=== PATIENT | female | born 1970 | race Caucasian/White ===

== ENCOUNTER 2018-07-05 09:43 | Day surgery (SDC) | payer MEDICAID ==
[2018-07-05] VITALS (10 sets, daily range): BP systolic 124–161; BP diastolic 61–90; PULSE 65–74; RESP 10–19; Ht 157.5 cm; Wt 71.1 kg
[~2018-07-05] VITALS: Ht 157.5 cm; Wt 71.1 kg
[~2018-07-05 09:43] MED LIST: CEFAZOLIN 1 GM/50 ML (PMX) 50 ML IVPB SCH; SOD CHLORIDE 0.9% 1,000 ML IV SCH
--- NOTE | 2018-07-05 11:30 | PREAC ---
Date/Time of Note Date/Time of Note DATE: 07/05/18 TIME: 11:30 Anesthesia Eval and Record Evaluation Time Pre-Procedure Interview DATE: 07/05/18 TIME: 11:30 Age 48 Sex female NPO: 8 hrs Preoperative diagnosis Left breast mass Planned procedure Excision of mass Past Medical History Past Medical History: None Surgery & Anesthesia Issues No known issue Meds Anticoagulation: No Beta Rosario within 24 hr: No Reason Beta Rosario not given: Pt. not on B-Rosario No Active Prescriptions or Reported Meds Current Medications Sodium Chloride 1,000 ml @ 75 mls/hr [id number] IV ; Start 07/05/18 at 07:00 Cefazolin Sodium 50 ml @ 100 mls/hr OC IVPB ; Start 07/05/18 at 07:00 Meds reviewed: Yes Allergies Coded Allergies: No Known Allergies (Verified Allergy, Unknown, 07/05/18) Allergies Reviewed: Yes Labs/Studies Labs Reviewed: Reviewed by anesthesiologist test: Negative Pre-procedure Exam Last vitals Vital Signs Date Temp Pulse Resp B/P (MAP) Pulse Ox O2 O2 Flow FiO2 Time Delivery Rate 07/05/18 98.1 71 16 159/84 98 Room Air 11:21 (109) Airway: Adequate mouth opening Mallampati: Mallampati II Teeth: Normal Lung: Normal Heart: Normal ASA Physical Status ASA physical status: 2 Emergency: None Planned Anesthetic General/MAC: LMA Planned Pain Management Parenteral pain med Pre-operative Attestations Prior to commencing anesthesia and surgery, the patient was re-evaluated, there was verification of: *The patient's identity *The results of appropriate recent lab work and preoperative vital signs *The above evaluation not changing prior to induction *Anesthetic plan, risk benefits, alternative and complications discussed with patient/family; questions answered; patient/family understands, accepts and wishes to proceed. AL HAQ MD Jul 05, 2018 11:30
[2018-07-05] MEDS ORDERED: CEFAZOLIN 1 GM INJ ONE (11:35)
[2018-07-05] MEDS ORDERED: PROPOFOL 20 ML ONE (11:35)
[2018-07-05] MEDS ORDERED: LIDOCAINE 2% (SDV) 5 ML INJ ONE (11:35)
[2018-07-05] MEDS ORDERED: MEPERIDINE 100 MG INJ ONE (11:36)
[2018-07-05] MEDS ORDERED: METOCLOPRAMIDE 10 MG INJ ONE (11:36)
[2018-07-05] MEDS ORDERED: ONDANSETRON 4 MG INJ ONE (11:36)
[2018-07-05] MEDS ORDERED: MIDAZOLAM 1 MG/ML 2 ML INJ IV PRN (12:00)
[2018-07-05] MEDS ORDERED: MEPERIDINE 25 MG INJ IV PRN (12:00)
[2018-07-05] MEDS ORDERED: ONDANSETRON 4 MG INJ IV PRN (12:00)
[2018-07-05] MEDS ORDERED: HYDROmorphONE 1 MG/5 ML IV SYRINGE IV PRN ×3 (12:00)
[2018-07-05] MEDS ORDERED: hydrALAzine 20 MG INJ IV PRN (12:00)
[2018-07-05] MEDS ORDERED: METOCLOPRAMIDE 10 MG INJ IV PRN (12:00)
[2018-07-05] MEDS ORDERED: FENTAnyl 50 MCG/ML VIAL IV PRN ×3 (12:00)
[2018-07-05] MEDS ORDERED: LABETALOL HCL 20MG INJ IV PRN (12:00)
[2018-07-05] MEDS ORDERED: EPHEDrine SULFATE 50 MG/5 ML SYG IV PRN (12:00)
[2018-07-05] MEDS ORDERED: OXYCODONE/ACETAMINOPHEN (5/325) TAB PO PRN ×2 (12:00)
[2018-07-05] MEDS ORDERED: DIPHENHYDRAMINE 50 MG INJ IV PRN (12:00)
--- NOTE | 2018-07-05 12:55 | SIPON ---
Date/Time of Note Date/Time of Note DATE: 07/05/18 TIME: 12:53 Operative Report Preoperative Diagnosis Left breast mass consistent with papilloma rule out papillary cancer Postoperative Diagnosis Same Operation/Procedure Performed Excision of left breast mass Surgeon see signature line social service assistant Dr Kong Anesthesia: general Estimated blood loss: 10 - 50 ml's Transfusion Required none Specimen Left breast mass Grafts/Implants none Complications none SHELDON RUBIO MD Jul 05, 2018 12:55
[2018-07-05] MEDS ORDERED: HYDROCODONE/APAP (7.5/325) TAB PO PRN (13:00)
--- NOTE | 2018-07-05 13:39 | OPR ---
DATE OF OPERATION: 07/05/2018 PREOPERATIVE DIAGNOSIS: Left breast mass, rule out papillary cancer. POSTOPERATIVE DIAGNOSIS: Left breast mass, rule out papillary cancer. PROCEDURE: Excision of left breast mass. ANESTHESIA: General. ANESTHESIOLOGIST: James Dudley MD SURGEON: Theron Gonzalez MD CUSTOMER SERVICE COORDINATOR: Lalit Kong MD INDICATIONS FOR PROCEDURE: The patient is a 48-year-old female who presented with a palpable mass at 3 o'clock location of her left breast. Core biopsy revealed findings consistent with papilloma. Th e patient was counseled as to need for definitive excision. She consented and was scheduled for surg erin. DESCRIPTION OF PROCEDURE: The patient was brought to the operating theater, placed under general ane sthesia. The left breast was prepped and draped in usual sterile fashion. A periareolar incision wa s then made from the 12 o'clock location through the 3 o'clock location to the 6 o'clock location of the left breast. Subcutaneous tissue was dissected with cautery. The skin edges were elevated with skin hooks and wide circumferential dissection of the tissue associated with the mass took place. At one point, a large fluid cavity was entered consistent with large cyst. The cyst and the associated mass were circumferentially dissected down to the pectoralis major fascia. Specimen was then elevat ed, transected, oriented and sent for permanent pathologic analysis. The wound was irrigated. Minim al bleeding was controlled with cautery. The skin was then reapproximated with 4-[address] aced in deep dermal interrupted fashion, followed by final skin approximation with 5-0 PDS sutures in subcuticular fashion and Dermabond was applied. The patient tolerated procedure well. Estimated bl ood loss was 20 mL. There were no complications and the patient was transported in stable condition to the recovery room where circumferential compression dressing was applied. Dictated By: THERON GONZALEZ MD TL/NANCY Conf#: [id number] DID#: [id number]
--- NOTE | 2018-07-05 13:40 | PAC ---
Date/Time of Note Date/Time of Note DATE: 07/05/18 TIME: 13:39 Post-Anesthesia Notes Post-Anesthesia Note Last documented vital signs Vital Signs Date Temp Pulse Resp B/P (MAP) Pulse Ox O2 O2 Flow FiO2 Time Delivery Rate 07/05/18 70 13 161/80 98 Room Air 13:26 (107) 07/05/18 98.2 12:57 Activity: WNL Respiratory function: WNL Cardiovascular function: WNL Mental status: Baseline Pain reasonably controlled: Yes Hydration appropriate: Yes Nausea/Vomiting absent: Yes AL HAQ MD Jul 05, 2018 13:40
[2018-07-05] MEDS ORDERED: ONDANSETRON (ODT) 4 MG TAB ODT STA (15:09)
== END 2018-07-05 15:48 | disposition home or self-care (01) ==
LOC: SDS 09:43
PROVIDERS: ATTEND Surgery Surgical Oncology
DX: N60.12 Diffuse cystic mastopathy of left breast (principal); N60.22 Fibroadenosis of left breast
CPT/HCPCS: 19120; 84703; 88307; J0690; J1170; J2175; J2405; J2765; J3010; Z7512; Z7610